=== PATIENT | female | born 1995 | race Two or more races ===

== ENCOUNTER 2025-09-05 17:29 | Emergency (ER) | payer MEDICAID, SELFPAY ==
[2025-09-05 17:30] VITALS: BMI 24.7
[2025-09-05 18:14] VITALS: BP 118/80; PULSE 99; RESP 17; TEMP 37.1; O2SAT 98
--- NOTE | 2025-09-05 18:16 | XR_ITS ---
Examination: OB Transvaginal ultrasound of the pelvis, complete Technique: Transvaginal sonographic images pelvis performed using quinn scale imaging Exam date and time: September 05, 2025, 1903 hours INDICATIONS: Vaginal bleeding pelvic pain today FINDINGS: Uterus 9.7 cm intrauterine gestational sac 0.3 cm corresponds to 5 weeks 0 days gestational age No pole, no cardiac activity Right ovary 3.0 cm arterial flow. Left ovary 3.8 cm arterial flow 23 mm possible corpus luteum cyst. IMPRESSION: Empty intrauterine gestational sac corresponding to 5 weeks 0 days gestational age, recommend short-term follow-up to confirm viability
--- NOTE | 2025-09-05 18:17 | EDNOTE_ITS ---
ED OB Contraction Preg RMI/HPI General Chief complaint: Abdominal Pain Stated complaint: 7WK PREG AND HAVING VAG BLEEDING AND PAIN Time Seen by Provider: 09/05/25 17:40 Source: patient, RN notes reviewed and old records reviewed Arrival date/time: 09/05/25 17:29 Mode of arrival: ambulatory Limitations: no limitations RME / HPI RME / HPI Narrative: 30yof approx 7 weeks gestation presents to ED for vaginal spotting that started today. Patient reports minimal blood present with wiping only. She c/o a lower backache. No fever, nausea/vomiting, pelvic pain or dysuria reported. No medications or treatments since onset. First OB appointment scheduled for 09/18/25. LMP 07/13/25. Related Data Allergies Allergy/AdvReac Type Severity Reaction Status Date / Time aspirin Allergy Verified 09/05/25 17:32 Review of Systems Review of Systems Systems Reviewed: All systems reviewed, normal except as documented Genitourinary Genitourinary: Reports abnormal vaginal bleeding, Denies dysuria and Denies pelvic pain Musculoskeletal Musculoskeletal: Reports back pain Past Medical History Past Medical History ENDOCRINE: Positive Diabetes Mellitus Type 2 Surgical History SURGICAL: Positive Section Social History SMOKING STATUS: Never smoker SUBSTANCE USE: does not use ALCOHOL: Never ED Exam General Limitations: Present no limitations General appearance: Present alert and in no apparent distress Head Head exam: Present atraumatic and normocephalic Eye Eye exam: Present normal appearance, PERRL and EOMI ENT ENT exam: Present normal exam and mucous membranes moist Neck Neck exam: Present normal inspection and full ROM Chest Chest inspection: Present normal inspection and symmetric chest wall rise Respiratory Respiratory exam: Present normal lung sounds bilaterally; Absent respiratory distress Cardiovascular Cardiovascular exam: Present regular rate and normal rhythm Abdominal Exam Abdominal exam: Present soft; Absent distention, tenderness, guarding or rebound Extremities Exam Extremities exam: Present normal inspection and full ROM Back Exam Back exam: Present normal inspection and full ROM; Absent tenderness Neurological Exam Neurological exam: Present alert and oriented X3 Psychiatric Psychiatric exam: Present normal affect and normal mood Skin Skin exam: Present warm, dry, intact and normal color Course Quality Measures none Orders Category Date Time Status US OB transvaginal Stat Exams 09/05/25 18:16 Completed Beta HCG,Quantitative Stat Lab 09/05/25 18:32 Completed CBC Stat Lab 09/05/25 18:32 Completed CMP [Comprehensive Metabolic Panel] Stat Lab 09/05/25 18:32 Completed UA [Urinalysis] Stat Lab 09/05/25 19:04 Completed Vital Signs Vital signs: Vital Signs Temperature 98.7 F 09/05/25 18:14 Pulse Rate 99 09/05/25 18:14 Respiratory Rate 17 09/05/25 18:14 Blood Pressure 118/80 09/05/25 18:14 Pulse Oximetry (%) 98 09/05/25 18:14 Oxygen Delivery Method Room Air 09/05/25 18:14 Vaginal Bleeding MDM Narrative MDM Narrative: 30yof approx 7 weeks gestation presents to ED for vaginal spotting that started today. Patient reports minimal blood present with wiping only. She c/o a lower backache. No fever, nausea/vomiting, pelvic pain or dysuria reported. No medications or treatments since onset. First OB appointment scheduled for 09/18/25. LMP 07/13/25 Patient updated on labs and imaging. Encourage close follow-up with OB. She is taking daily prenatals. Tylenol prn pain. Stable for discharge, RTED precautions given. Patient data External records reviewed:: [facility] previous records (02/08/24 admit for labor and delivery) Clinical information provided by:: patient Social determinants that could affect healthcare access:: none Patient has the following chronic illnesses:: DM How is presenting disease/condition affected by chronic disease/condition?: uneffected by Evaluation data The following diagnostics were reviewed and interpreted by me:: lab results and radiology exam(s) Lab and/or radiology exams considered but not ordered:: none Interpretation Summary: Ob ultrasound: early gestational sac per my read hcg 1003 Medications / Prescriptions Medications or Prescriptions considered but not ordered:: no antibiotics recommended at this time Medication administrations:: none Consultations Consultation(s) initiated? (list below): No Diagnosis Vaginal Bleeding Differential Diagnosis: missed , threatened , ectopic without intrauterine and vaginal bleeding Most likely diagnosis given after review of the tests above:: Threatened miscarriage Admission Indicated Admission indicated?: not indicated Admission Request Was there a request for admission?: No Disposition Plan Disposition Plan: Discharge Discharge Attestation Discharge Attestation: The patient and all family members were given an opportunity to ask questions and understood the discharge instructions. Discharge instructions specifically effects, indications for sooner follow up or return to the emergency department, and the expected course of current diagnosis. Patient condition: Stable Discharge Plan Plan Patient Disposition: HOME (Self Care) Patient condition on transfer: Stable Prescriptions/Referrals Referrals: Shankar Albright MD [Primary Care Provider, Family Practice] - In 1 week Problem List Clinical Impression: Miscarriage, threatened, early Patient/Caregiver Discharge Instructions Education Materials: ED Possible Miscarriage ... Additional Instructions: Your hcg ( hormone) level was 1003 today. Follow-up with with your OB in the following week for hCG recheck. Print Language: Slovak Stand Alone Forms: [employer] Award Info., Patient Portal Info Letter PA/SALES ACCOUNT DIRECTOR Supervising Physician PA/SALES ACCOUNT DIRECTOR Supervising Physician: Carleen
[2025-09-05 18:43] LABS: Basophils # (Auto) 0.1 Thou/mm3 (0.0-0.2); Basophils % (Auto) 1 % (0-2.5); Eosinophils # (Auto) 0.2 Thou/mm3 (0.0-0.5); Eosinophils % (Auto) 2 % (0-10); Hematocrit 35.5 % (36.0-46.0); Hemoglobin 11.7 g/dL (12.0-16.0); Immature Granulocytes Auto 0.02 Thou/mm3 (0.00-0.00); Lymphocytes # (Auto) 1.8 Thou/mm3 (1.0-4.8); Lymphocytes % (Auto) 22 % (10-50); Mean Corpuscular HGB Conc 33.0 g/dl (31.0-37.0); Mean Corpuscular Hemoglobin 29.4 pg (25.0-35.0); Mean Corpuscular Volume 89 fL (80-100); Monocytes # (Auto) 0.5 Thou/mm3 (0.0-0.8); Monocytes % (Auto) 6 % (0-12); Neutrophils # (Auto) 5.8 Thou/mm3 (1.8-7.7); Neutrophils % (Auto) 69 % (37-80); Nucleated Red Blood Cell # 0.00 Thou/mm3 (0.00-0.00); Nucleated Red Blood Cell % 0 /100 WBC (0); Platelet Count 254 Thou/mm3 (140-440); RDW Standard Deviation 39.9 fL (36.4-46.3); Red Blood Count 3.98 Miln/mm3 (4.00-5.20); White Blood Count 8.4 Thou/mm3 (3.6-11.0)
[2025-09-05 19:13] LABS: Collection Type, Urine Clean Catch; Squamous Epithelial Cell,Urine 0 /hpf (0-5)
[2025-09-05 19:27] LABS: Bilirubin,Urine Negative (Negative); Blood,Urine Trace (Negative); Clarity,Urine Clear (Clear/Hazy); Color,Urine Lt-Yellow (Lt Yel-Yel); Glucose, Urine Negative (Negative); Ketones,Urine Negative (Negative); Leukocyte Esterase,Urine Negative (Negative); Nitrite,Urine Negative (Negative); PH,Urine 6.0 (5.0-7.0); Protein,Urine 1+ (Neg - Trace); RBC,Urine < 1 /hpf (0-3); Specific Gravity,Urine 1.010 (1.001-1.035); Urobilinogen,Urine Negative mg/dL (0.0-1.0); WBC,Urine < 1 /hpf (0-5)
[2025-09-05 19:33] LABS: Alanine Aminotransferase 7 U/L (10-49); Albumin, Serum 4.7 gm/dL (3.5-5.0); Albumin/Globulin Ratio 1.6 (1.2-2.2); Alkaline Phosphatase 86 U/L (46-116); Anion Gap 13 (7-16); Aspartate Amino Transferase 16 U/L (0-34); BUN/Creatinine Ratio 9 Ratio (12-20); Beta HCG,Quantitative 1003 mIU/mL (<5.0); Bilirubin,Total 0.2 mg/dL (0.3-1.2); Blood Urea Nitrogen 9 mg/dL (9-23); Calcium 9.8 mg/dL (8.3-10.6); Calcium (Corrected) 9.8 mg/dL (8.5-10.1); Carbon Dioxide 25.8 mMol/L (20.0-31.0); Chloride 104 mMol/L (98-107); Creatinine (Component) 1.0 mg/dL (0.6-1.3); Estimated Creatinine Clearance 64.2 mL/min (>60); Globulin 2.9 gm/dL (2.3-3.5); Glucose 140 mg/dL (74-106); Osmolality,Calculated 285 (275-295); Potassium 3.9 mMol/L (3.4-5.1); Sodium 143 mMol/L (136-145); Total Protein 7.6 gm/dL (5.7-8.2); eGFR > 60 See Note
== END 2025-09-05 20:34 | disposition home or self-care (01) ==
PROVIDERS: Physician Assistant; Emergency Provider Emergency Medicine; PCP Family Medicine
DX: O20.0 Threatened abortion (principal); Z3A.01 Less than 8 weeks gestation of pregnancy
CPT/HCPCS: 36415; 76817; 80053; 81001; 84702; 85025; 99283